=== PATIENT | female | born 1990 | race Caucasian/White ===

== ENCOUNTER 2016-06-11 17:35 | Emergency (ER) | payer OTHER ==
[~2016-06-11] VITALS: Ht 167.6 cm; Wt 110.0 kg
[~2016-06-11 17:35] MED LIST: OXYC1SOL5 PO; PREN29CH PO
[2016-06-11 17:44] VITALS: BP 136/88; PULSE 91; RESP 16; TEMP 98.7; O2SAT 97
[2016-06-11] MEDS ORDERED: BIRTH CONTROL (17:53)
--- NOTE | 2016-06-11 18:52 | PD ---
HPI Chief Complaint: Injury Time Seen by Provider: 18:51 Travel History International Travel<30 days: No Contact w/Intl Traveler<30days: No Traveled to known affect area: No History of Present Illness HPI 25-year-old female presents to the ED for evaluation of left knee pain. Onset yesterday afternoon when she fell on broken concrete and landed on the knee.. Patient states that she had her daughter and her arms is unsure whether she twisted the knee. She has been ambulatory since the accident. States the pain is worsened by ambulation and flexion of the knee. She denies numbness, tingling, weakness, limitations to range of motion or loss of strength. She denies previous injury to the same side. She is unsure of the date of her last tetanus immunization. No treatment at home. She drove herself to the emergency room today. PFSH Past Medical History Cardiac Catheterization: Yes (AGE 16) Chest Pain: Yes (CHEST PAIN) Diminished Hearing: No Headaches: Yes Tetanus Vaccination: < 5 Years PNEUMOCCOCAL Vaccine (Year): 2 ?: Not LMP: 05/22/16 : 1 Past Surgical History Cardiac Surgery: Yes (HEART CATH 02/12) Social History Alcohol Use: No Tobacco Use: No Substance Use: No Allergies-Medications (Allergen,Severity, Reaction): Coded Allergies: No Known Allergies (Verified , 06/11/16) Reported Meds & Prescriptions Reported Meds & Active Scripts Active Reported [ Control ] Review of Systems Except as stated in HPI: all other systems reviewed are Neg Physical Exam Narrative GENERAL: Well-nourished, well-developed white female in no acute distress. SKIN: Focused skin assessment warm/dry. 3-4 cm abrasion on the left anterior knee. Ecchymosis of the anterior aspect of the proximal tibia. HEAD: Normocephalic. EYES: No scleral icterus. No injection or drainage. NECK: Supple, trachea midline. No JVD or lymphadenopathy. CARDIOVASCULAR: Regular rate and rhythm without murmurs, gallops, or rubs. RESPIRATORY: Breath sounds equal bilaterally. No accessory muscle use. GASTROINTESTINAL: Abdomen soft, non-tender, nondistended. MUSCULOSKELETAL: No cyanosis, or edema. FOCUSED LEFT LOWER EXTREMITY EXAM: 2+ radial pulse. No joint line tenderness to palpation. No popliteal tenderness. No palpable masses. No patellar balloting. Tender to palpation of the proximal aspect of the anterior tibia. There is/valgus stress testing negative. Anterior drawer testing negative. Patient is noted to walk with a normal gait. BACK: Nontender without obvious deformity. No CVA tenderness. Data Data Last Documented VS Vital Signs Date Time Temp Pulse Resp B/P Pulse Ox O2 Delivery O2 Flow Rate FiO2 06/11/16 17:44 98.7 91 16 136/88 97 Orders Knee, Complete (4vws) (06/11/16 18:45) Ice/Cold Pack (06/11/16 18:45) Ed Urine Pregnancytest Poc (06/11/16 18:47) Ketorolac Inj (Toradol Inj) (06/11/16 19:30) Tetanus/Diphtheria Tox Adult (Tetanus/Di (06/11/16 19:30) MDM Medical Decision Making Medical Screen Exam Complete: Yes Emergency Medical Condition: Yes Differential Diagnosis Abrasion versus contusion versus effusion versus fracture versus dislocation versus other Narrative Course 25-year-old female presents to the ED for evaluation of left knee pain. Onset yesterday afternoon when she fell on broken concrete. Patient states that she had her daughter and her arms is unsure whether she twisted or inverted knee. She did land on the left knee. She has been ambulatory since the accident. States the pain is worsened by ambulation and flexion of the knee. Denies numbness, tingling, weakness, limitations to range of motion or loss of strength. She denies previous injury to the same side. No treatment at home. Results of emergency room today. Vitals reviewed. Physical exam reveals a pleasant white female in no acute distress. Focused left lower extremity exam reveals 2 large abrasions of the anterior knee, tender ecchymosis of the proximal aspect of the anterior tibia. No joint line or popliteal tenderness. No palpable masses. No patellar balloting. Negative varus/valgus and anterior drawer testing. Patient is noted to walk with a normal gait. Ice pack was applied. X-rays unremarkable per radiology read. This is contusion of the knee. The patient's tetanus immunization was updated. She was administered IM Toradol. She is prescribed 800 mg ibuprofen 3 times a day 5 days. She is instructed to rest, ice, elevate the extremity, follow up with the primary care orthopedist. She indicated understanding of instructions. She is agreeable to the care plan. She is stable and discharged home. Diagnosis Primary Impression: Contusion of left knee Qualified Code: S80.02XA - Contusion of left knee, initial encounter Additional Impressions: Abrasion, left knee, initial encounter Need for prophylactic vaccination with tetanus toxoid alone Referrals: Orthopedist Patient Instructions: Contusion in Adults (ED), General Instructions Additional Instructions: Rest, ice, elevate the extremity. Apply ice no longer than 10-15 minutes per hour a few times a day. 800 mg ibuprofen up to 3 times a day 5 days as prescribed. Begin tomorrow. Return to normal, gentle activity as tolerated. No running, jumping activities for the next few weeks. Follow up with orthopedist or your primary care provider. Return to the ED for any urgent or emergent medical condition. Med/Other Pt SpecificInfo: Prescription(s) given Scripts Ibuprofen 800 Mg [id number] Mg PO Q8H #20 TAB Ref 0 Prov:Vinita Jon MD 06/11/16 Disposition: 01 DISCHARGE HOME Condition: Stable Jael Savage Jun 11, 2016 18:51
--- NOTE | 2016-06-11 19:21 | RADHPO ---
EXAM DATE/TIME: 06/11/2016 18:57 [facility] COMPARISON: No previous studies available for comparison. INDICATIONS : Left knee pain after fall. MEDICAL HISTORY : None. SURGICAL HISTORY : None. ENCOUNTER: Initial ACUITY: 1 day PAIN SCORE: 5/10 LOCATION: Left knee FINDINGS: Four view examination of the left knee demonstrates no evidence of fracture or dislocation. Bony min eralization is normal. The articular surfaces are intact. The suprapatellar soft tissues have a nor mal configuration. CONCLUSION: Unremarkable examination of the left knee. Bandar Nunes MD on June 11, 2016 at 19:19 Board Certified Radiologist. This report was verified electronically.
[2016-06-11] MEDS ORDERED: IBUP800T23 PO (19:29)
[2016-06-11] MEDS ORDERED: TETANUS/DIPHTHERIA TOXOID ADULT 0.5 ML VIAL IM ONE (19:30)
[2016-06-11] MEDS ORDERED: KETOROLAC TROMETHAMINE 60 MG/2 ML (IM) VIAL IM ONE (19:30)
== END 2016-06-11 20:07 | disposition home or self-care (01) ==
LOC: PHEFT 17:35
DX: S80.02XA Contusion of left knee, initial encounter (principal); W01.198A Fall on same level from slipping, tripping and stumbling with subsequent striking against other object, initial encounter; Y93.01 Activity, walking, marching and hiking; Y92.480 Sidewalk as the place of occurrence of the external cause; Z23 Encounter for immunization
CPT/HCPCS: 73564; 84703; 90471; 90714; 96372; 99283; J1885